=== PATIENT | male | born 1990 | race Caucasian/White ===

== ENCOUNTER 2023-06-15 20:47 | Emergency (ER) | payer SELFPAY ==
[2023-06-15] MEDS: Tetracaine HCl/PF 0.5% 4 ML Bottle EYERT ONE (21:23)
== END 2023-06-15 21:48 | disposition home or self-care (01) ==
LOC: LL.ED 20:47
DX: S05.01XA Injury of conjunctiva and corneal abrasion without foreign body, right eye, initial encounter (principal); X58.XXXA Exposure to other specified factors, initial encounter
CPT/HCPCS: 99283; J3490